=== PATIENT | male | born 1950 | race Caucasian/White ===

== ENCOUNTER → 2016-07-27 | Outpatient (CLI) | payer SELFPAY ==
--- NOTE | 2016-07-28 13:38 | KCIC ---
PROCEDURE: 2 CT coronary calcium score HISTORY Calcium screening. Reason For Study Reason: SCREENING FOR HEART DISEASE, BROTHER-[place] / Spl. Instructions: / History: TECHNIQUE High resolution, computed tomography of the heart was performed with ECG gating and suspended respiration using the Siemens HeartView CT. No contrast material was administered. Post processing was performed on the 3-D computer workstation using diastolic phase images to measure the amount of coronary vascular calcium. Scoring was performed utilizing the Agaston Method. FINDINGS Thorax: No significant abnormality is identified in the lungs or mediastinum. Note that this CT exam is limited to the heart and adjacent structures. Mild ectasia of the ascending aorta. Coronary arteries: CALCIUM IS PRESENT. TOTAL AGASTON CALCIUM SCORE =1196.2. Calcium is detected in the coronary circulation and confirms the presence of atherosclerotic plaque. The score is derived from 54 in the left main coronary artery, 4 in 28.4 in the left anterior descending, 42.2 in the left circumflex can't 671.7 in the right coronary artery The presence of coronary calcium confirms the presence of atherosclerotic plaque. The greater the amount of coronary calcium, the greater the likelihood of stenotic or occlusive coronary artery disease. However, there is not a one-to-one relationship, and findings may not be site specific. The total amount of calcium correlates best with the total amount of atherosclerotic plaque, although the true plaque burden may be underestimated by calcium score. A high calcium score may be consistent with a MODERATE TO HIGH RISK risk of cardiovascular events within the 2-5 years. IMPRESSION 1. Coronary atherosclerosis is present, extensive. 2. High risk of cardiovascular event within the next 2 to 5 years. 3. High probability of stenotic (potentially flow-limiting) or occlusive coronary artery disease RECOMMENDATIONS 1. Strongly consider further cardiac evaluation for pre-clinical coronary heart disease. 2. Deposit aggressive cardiovascular risk factor modification as indicated based on risk profile. Additional supporting information concerning the findings and recommendation contained within this report can be found in the consensus statements on coronary vascular calcium published by the [place] [employer] and [place] [employer] and [employer] 5 Conference (Circulation 1996; 94: 4933-5123; J Am Christopher Cardiol 2000; 36: 326-340 and Circulation 2000; 101: 111-116). PQRS STATEMENT One or more of the following individualized dose reduction techniques were utilized for this study: 1.Automated exposure control 2.Adjustment of the mA and/or kV according to patient size 3.Use of iterative reconstruction technique Electronically signed by: Kayla Bradford MD (Jul 28, 2016 13:36:54)
== END | disposition home or self-care (01) ==
LOC: KCIC CT 10:15
PROVIDERS: ATTEND Nurse Practitioner Family
DX: Z13.6 Encounter for screening for cardiovascular disorders (principal); Z79.01 Long term (current) use of anticoagulants; Z86.69 Personal history of other diseases of the nervous system and sense organs; Z82.49 Family history of ischemic heart disease and other diseases of the circulatory system
CPT/HCPCS: 75571

== ENCOUNTER → 2016-08-24 | Outpatient (CLI) | payer MEDICARE ==
--- NOTE | 2016-08-25 12:31 | RAD ---
APPROVED REPORT Test Type: Exercise Stress Nurse/Tech: Gina Lora R.N. Test Indications: elevated calcium score, pt states that he has been getting dizziness that will oc cur all day long when either he goes from a laying position to sitting and from sitting to standing. the worse dizziness is from the first set of positioning. these dizzy spells occur every couple of mo nths. Cardiac History: none noted Medications: See Electronic Medical Record Medical History: See Electronic Medical Record Resting ECG: SB Resting Heart Rate: 49 bpm Resting Blood Pressure: 129/68mmHg Pretest Chest Pain: No chest pain Nurse/Tech Notes S1S2, Lungs CTA Consent: The procedure was explained to the patient in lay terms. Informed consent was witnessed. Junior hadley was entered into [employer]. History and Stress Test performed by KRISTEL Parra Stress Symptoms dizziness which did resolve during recovery period while sitting, SOA, leg fatigue POST EXERCISE Reason for Termination: Reached target heart rate Target HR: Yes Max HR: 133 bpm 102% of Maximum Predicted HR: 130 bpm Exercise duration: 9.02 min:sec, 3 Stage Exercise capacity: 10METs Max Blood Pressure: 160/73mmHg Blood Pressure response to exercise: Normal blood pressure response during stress. Heart Rate response to exercise: wnl Chest Pain: No. Arrhythmia: No. ST Change: No. Imaging Protocol IMAGE PROTOCOL: Rest Tc-99m/stress Tc-99m 1 day Rest: Stress: Viability: Radiopharm.Tc99m [id number] Sestamibi Dose10.2mCi 36mCi Duration 15min. 10min. Img Date 08/24/2016 08/24/2016 Inj-Img [id number]. 60min. Rest Admin Site:IV - Right AntecubitalAdministrator:RT Darion (R)(N) Stress Admin Site: IV - Right AntecubitalAdministrator: KRISTEL Parra STRESS DATA End Diast. Vol.76.0mlAv. Heart Rate67.0bpm End Syst. Vol.23.0mlCO Index BSA0.0L/min Myocardial Jobl144.0gEject. Rnuebjll93.0% Stress Rates Pk. Fill Rate3.05EDV/secLVtime Pk. Fill 226.49msec Pk. Empty Rate3.77ESV/secLVtime Pk. Yayal932.50msec 05/05 Pk. Fill1.12EDV/sec Stress Scores Regional WT0.00Summed WT3.00 Regional WM0.00Summed WM0.00 LV Perf. Quant 17 Seg. SSS0.00 17 Seg. SRS0.00 17 Seg. SDS0.00 Stress Defect Extent (% LAD)0.00Rest Defect Extent (% LAD)0.00Rev. Defect Extent (% LAD)0.00 Stress Defect Extent (% LCX) 0.00Rest Defect Extent (% LCX)0.00Rev. Defect Extent (% LCX)0.00 Stress Defect Extent (% RCA)0.00Rest Defect Extent (% RCA)0.00Rev. Defect Extent (% RCA)0.00 Stress Defect Extent (% DAKOTA)0.00Rest Defect Extent (% DAKOTA)0.00Rev. Defect Extent (% DAKOTA)0.00 Conclusion 1. The patient was exercised on the Neri protocol for a total of 9 minutes achieving 10 Mets.. 2. He attained a heart rate of 130 bpm which is almost 90% of the maximum predicted heart rate for hi s age. 3. Exercise was terminated at that point. There was no chest pain. 4. There were no electrocardiographic changes suggestive of myocardial ischemia 5. . The blood pressure response was normal. There were no arrhythmias. 6. There were no perfusion defects to suggest myocardial ischemia or scar. 7. There is normal wall motion and wall thickening with an ejection fraction of 70%. 8. Scan indicates low risk for future cardiac events.
== END | disposition home or self-care (01) ==
LOC: NM 09:24
PROVIDERS: ATTEND Internal Medicine Cardiovascular Disease
DX: R93.1 Abnormal findings on diagnostic imaging of heart and coronary circulation (principal)
CPT/HCPCS: 78452; 93017; 96374; 96376; A9500

== ENCOUNTER → 2018-03-07 | Outpatient (CLI) | payer MEDICARE ==
[~2018-03-07] MED LIST: ASPI325T8 PO; ATOR10TA60 PO; CIPR250T PO; GABA-585 PO; GADOBUTROL 7.5 MMOL/7.5 ML VIAL IV ONE; PHEN100C PO
--- NOTE | 2018-03-07 10:44 | KCIC ---
MRI of the Brain without and with Contrast 03/07/2018 Clinical History: History of expressive aphasia and vertigo. History of previous CVA. Technique: Unenhanced T1-weighted sagittal and axial and FLAIR, T2-weighted, gradient echo and diffusion-weighted axial images of the brain were obtained. Additionally thin section T2-weighted and FLAIR coronal images of the temporal lobes were obtained. After the intravenous administration of 7 cc of Gadavist, enhanced T1-weighted axial, sagittal and coronal images of the brain were obtained. Findings: No previous studies are available for comparison. There is generalized parenchymal atrophy. Patchy, confluent and multiple focal areas of abnormally increased signal intensity are seen within the periventricular and subcortical white matter of both cerebral hemispheres on the FLAIR and T2-weighted images consistent with areas of small vessel ischemic disease. An area of encephalomalacia is seen within the left temporal lobe. Old areas of lacunar infarction are seen within the periventricular/deep white matter of the left frontotemporal lobe which measure 5 mm to 1 cm in size. No acute parenchymal abnormality is seen. No abnormal area of contrast enhancement is noted. No extra-axial fluid collection is seen. There is no MRI evidence of acute ischemia/infarction. Mild mucosal thickening in seen scattered throughout the paranasal sinuses. There is a small left mastoid effusion. A minimal right mastoid effusion is seen. Normal flow voids are seen within the major vascular structures surrounding the brain parenchyma. Impression: No acute parenchymal abnormality is seen. Electronically signed by: Brandon Zelaya MD (03/07/2018 10:41 AM) [facility]-[id number]
== END | disposition home or self-care (01) ==
LOC: KCIC MRI 09:14
PROVIDERS: ATTEND Family Medicine
DX: I63.81 Other cerebral infarction due to occlusion or stenosis of small artery (principal); H74.8X3 Other specified disorders of middle ear and mastoid, bilateral; G93.89 Other specified disorders of brain; R47.01 Aphasia; Z86.73 Personal history of transient ischemic attack (TIA), and cerebral infarction without residual deficits; Z79.01 Long term (current) use of anticoagulants
CPT/HCPCS: 70553; A9585

== ENCOUNTER → 2018-03-17 | Outpatient (CLI) | payer MEDICARE ==
[~2018-03-17] MED LIST changes: -GADOBUTROL 7.5 MMOL/7.5 ML VIAL IV ONE
--- NOTE | 2018-03-17 14:19 | KCIC ---
Exam : Carotid Duplex with Grayscale Ultrasound and Spectral and Color Doppler Analysis 03/17/2018 2:13 PM Clinical Indications: Expressive aphasia Comparison study: None available. PQRS Compliance Statement - Stenosis calculations for CT, MR and conventional angiography are based upon measurement of the distal ICA diameter in accordance with the NASCET methodology. Stenosis calculations for carotid ultrasound studies are derived from validated velocity criteria which are known to correlate with the NASCET methodology. Findings: The common, internal and external carotid arteries were examined by grayscale, color and spectral Doppler ultrasound. Diffuse aphthous chronic vascular disease is noted. Dense plaque is seen at the level of the carotid bulb on the right. Mild visual narrowing is seen on color Doppler imaging. Right vertebral flow is antegrade. Similar to contralateral side, atherosclerotic plaquing is seen in the carotid bulb, more mild on the left. Distal left ICA is partially obscured. Left vertebral artery is antegrade. No focal elevations velocity suggestive of a hemodynamically significant stenosis are identified. See velocities below. The following are the velocities and ratios in the carotid arteries on both sides: RIGHT ICA PV: 73cm/sec RIGHT CCA PV: 90cm/sec RIGHT ICA ED: 26cm/sec RIGHT IC/CCPV: Less than 2 RIGHT VERTEBRAL: antegrade flow LEFT ICA PV: 69cm/sec LEFT CCA PV: 80cm/sec LEFT ICA ED: 25cm/sec LEFT IC/CCPV: Less than 2 LEFT VERTEBRAL: antegrade flow <50% ICA Stenosis: PSV < 125cm/s (EDV < 40cm/s; SVR < 2.0) 50-69% ICA Stenosis: PSV < 125-229cm/s (EDV 40-99cm/s; SVR 2.0-3.9) >70% ICA Stenosis: PSV > 230cm/s (EDV >100cm/s; SVR >4.0) Impression: Diffuse atherosclerotic vascular disease with atherosclerotic plaquing seen in the bilateral carotid bulbs right greater than left. Mild visual narrowing is demonstrated in the proximal most right ICA. By ultrasound criterion there is less than 50 percent stenosis of the bilateral internal carotid arteries. Electronically signed by: Ang Perez MD (03/17/2018 2:16 PM) [id number]
== END | disposition home or self-care (01) ==
LOC: KCIC US 12:30
PROVIDERS: ATTEND Family Medicine
DX: I65.23 Occlusion and stenosis of bilateral carotid arteries (principal); Z86.73 Personal history of transient ischemic attack (TIA), and cerebral infarction without residual deficits
CPT/HCPCS: 93880

== ENCOUNTER → 2020-03-22 | Outpatient (CLI) | payer MEDICARE ==
--- NOTE | 2020-03-22 16:25 | KCIC ---
EXAM: AP, lateral and lumbosacral spot views with bilateral oblique views of the lumbar spine DATE: 03/22/2020 12:00 AM INDICATION: LUMBAR BACK PAIN/RULE OUT COMPRESSION FX / Spl. Instructions: Fall 3 weeks ago. LBP, Bilat hip pain. Left leg and butock pain. COMPARISON: None FINDINGS: Examination is limited by marked osteopenia. Moderate height loss of T12 and L1. Mild L4-loss. Mild to moderate disc height loss at multiple levels. No spondylolisthesis. Atherosclerotic vascular calcifications are seen. Moderate to large volume colonic stool content is seen. IMPRESSION: 1. Height loss of the T12 and L1 vertebral bodies, age indeterminate. MRI may provide additional details if further imaging is required. 2. Otherwise no definite fracture seen although marked osteopenia limits evaluation. 3. Large volume colonic stool content. Electronically signed by: Sam Mari MD (03/22/2020 4:22 PM) [id number]
--- NOTE | 2020-03-22 16:26 | KCIC ---
EXAM: 2 views of the pelvis DATE: 03/22/2020 12:00 AM INDICATION: Reason: LUMBAR BACK PAIN/RULE OUT COMPRESSION FX. / Spl. Instructions: Fall 3 weeks ago. LBP, Bilat hip pain. Left leg and butock pain. / History: COMPARISON: No Prior FINDINGS: Marked osteopenia, within the constraints of osteopenia no evidence for acute fracture or dislocation, however MRI is more sensitive given degree of osteopenia. Large volume colonic stool content. Hip joint degenerative changes are seen. Vascular calcifications are seen. IMPRESSION: Within the constraints of osteopenia, no evidence for acute fracture or dislocation. Further evaluation with MRI would provide additional details if there is persistent clinical concern. Electronically signed by: Sam Mari MD (03/22/2020 4:23 PM) [id number]
== END ==
LOC: KCIC 14:05
PROVIDERS: ATTEND Family Medicine
DX: M54.5 Low back pain (principal); M85.88 Other specified disorders of bone density and structure, other site; M16.0 Bilateral primary osteoarthritis of hip
CPT/HCPCS: 72110; 72170

== ENCOUNTER → 2020-03-27 | Outpatient (CLI) | payer MEDICARE ==
--- NOTE | 2020-03-27 14:45 | KCIC ---
EXAMINATION: Magnetic resonance imaging (MRI) of the lumbar spine without contrast 03/27/2020 1:15 PM HISTORY: Lumbar back pain with recent fall. TECHNIQUE: Multiplanar multi-weighted MRI of the lumbar spine was performed without intravenous contrast using the standard lumbar spine protocol. Contrast information: None administered. COMPARISON: Lumbar spine radiograph 03/22/2020 FINDINGS: There is minimal retrolisthesis of L2 on L3 and L3 on L4. There is minimal retrolisthesis of L5 on S1. Chronic height loss is identified at T12 with 25 percent height loss and anterior wedging. Chronic height loss is identified at L1 with 50 percent height loss. Inferior plate Schmorl's node is present. No associated edema. Superior plate Schmorl's node at L2 without significant height loss. There is an inferior endplate compression fracture at L3 with 50 percent height loss. No significant retropulsion of the inferior endplate. Superior and inferior endplate Schmorl's nodes are identified at L4 with minimal chronic height loss. Conus medullaris terminates at L1-L2. Distal spinal cord signal intensity is normal in all sequences. Marrow edema is noted at L3 localized to the inferior 50 percent of the vertebral body. Edema extends into the right L3 pedicle. Minimal interspinous edema at L2-L3 without disruption of the ligamentum flavum. No compressive epidural hematoma or prevertebral edema noted. Simple appearing right renal cyst measures 4.2 cm. Umbilical is normal in caliber. Visualized portions of the sacrum appear intact. T12-L1: There is mild disc bulge. Mild facet arthropathy. No neuroforaminal stenosis. Mild spinal canal stenosis. L1-L2: There is mild disc bulge. Mild facet arthropathy. No neuroforaminal or spinal canal stenosis. L2-L3: Mild circumferential disc bulge. Mild facet arthropathy. Severe bilateral neuroforaminal stenosis. Mild spinal canal stenosis. L3-L4: There is a disc bulge. Moderate facet arthropathy with fluid within the facet joints. Severe bilateral neuroforaminal stenosis. Mild spinal canal stenosis. L4-L5: There is moderate disc bulge. Mild facet arthropathy. Moderate bilateral neuroforaminal stenosis, left greater than right. No spinal canal stenosis. L5-S1: Disc bulge with central disc protrusion. Moderate facet arthropathy. Moderate bilateral neuroforaminal stenosis. No spinal canal stenosis. IMPRESSION: 1. Inferior plate compression fracture at L3 with 50 percent height loss. No significant retropulsion or disruption of the posterior ligamentous complex. Minimal interspinous edema identified at L2-L3. No epidural hematoma is identified. 2. Moderate lumbar spondylosis as described in detail above. 3. Chronic superior plate compression deformity at T12 and chronic inferior endplate compression deformity at L1 with 50 percent height loss. Electronically signed by: Divya Vazquez MD (03/27/2020 2:42 PM) [id number]
== END ==
LOC: KCIC MRI 13:07
PROVIDERS: ATTEND Family Medicine
DX: M47.815 Spondylosis without myelopathy or radiculopathy, thoracolumbar region (principal); M43.17 Spondylolisthesis, lumbosacral region; M51.46 Schmorl's nodes, lumbar region; M48.07 Spinal stenosis, lumbosacral region; M43.8X6 Other specified deforming dorsopathies, lumbar region; M43.8X4 Other specified deforming dorsopathies, thoracic region
CPT/HCPCS: 72148

== ENCOUNTER → 2020-08-05 | Outpatient (CLI) | payer MEDICARE ==
[~2020-08-05] MED LIST changes: +CALC500T30 PO; +CHOLECALCIFEROL PO; +MULT-445 PO; +OMEG100020 PO
--- NOTE | 2020-08-05 14:53 | KCIC ---
EXAM: 3 Views Left Shoulder DATE: 08/05/2020 10:53 AM INDICATION: Reason: LEFT SHOULDER/SCAPULA PAIN INTO ARM, FALL 1 WEEK AGO / Spl. Instructions: / Hist ory: COMPARISON: No Prior FINDINGS: There is no evidence for acute fracture or dislocation. AC joint is congruent. Mildly decreased bone mineral density. Humeral head is not high riding. IMPRESSION: 1. No acute fracture or dislocation. 2. Decreased bone mineral density. Electronically signed by: Sam Mari MD (08/05/2020 2:51 PM) [id number]
== END ==
LOC: KCIC 10:49
PROVIDERS: ATTEND Family Medicine
DX: M25.512 Pain in left shoulder (principal)
CPT/HCPCS: 73030

== ENCOUNTER → 2020-11-29 | Outpatient (CLI) | payer MEDICARE ==
[2020-09-03 10:46] VITALS: BP 108/60
[~2020-11-29] MED LIST changes: +ATOR80TA72 PO; +BISA5TAB4 PO; +DONE5TAB7 PO; +FOLI0.8T21 PO; +HYDR-2765 PO; +IOHEXOL 240 MG/ML 50ML VIAL. PO ONE; +IOHEXOL 300 MG/ML 100ML VIAL. IV ONE; +PANT40TA77 PO; +POLY17PO52 PO; +Warfarin Per Pharmacy MC
--- NOTE | 2020-11-29 14:54 | KCIC ---
EXAM: CT ABDOMEN/PELVIS WITH CONTRAST. HISTORY: Weight loss. TECHNIQUE: Computed tomography of the abdomen and pelvis was performed after the intravenous administ ration of iodinated contrast. One or more of the following individualized dose reduction techniques w ere utilized for this examination: 1. Automated exposure control. 2. Adjustment of the mA and/or kV according to patient size. 3. Use of iterative reconstruction technique. COMPARISON: None. FINDINGS: Lung windows through the visualized portions of the bases reveal mild atelectasis. There ar e atherosclerotic calcifications of the coronary arteries. Bone windows reveal no suspicious lesions. Osteopenia is moderate to severe. There are multiple moderate chronic appearing compression deformit ies throughout the visualized thoracic and lumbar spine. There are changes of internal fixation of a right femoral intertrochanteric fracture. This appears incompletely unified. Benign renal cysts measure up to 4.2 cm on the right. The spleen, liver, gallbladder, pancreas and ad renal glands are unremarkable. There are no pathologically enlarged lymph nodes. Stool throughout the colon is consistent with constipation. There is no small bowel obstruction. Ther e is no evidence of appendicitis. IMPRESSION: 1. Findings consistent with constipation. No acute intra-abdominal findings. 2. A right femoral intertrochanteric fracture appears incompletely unified. Electronically signed by: Christi Tolentino MD (11/29/2020 2:51 PM) [facility]
== END ==
LOC: KCIC CT 09:31
PROVIDERS: ATTEND Internal Medicine Gastroenterology
DX: S72.141A Displaced intertrochanteric fracture of right femur, initial encounter for closed fracture (principal); N28.1 Cyst of kidney, acquired; M85.88 Other specified disorders of bone density and structure, other site; I25.10 Atherosclerotic heart disease of native coronary artery without angina pectoris; J98.11 Atelectasis; X58.XXXA Exposure to other specified factors, initial encounter; Y93.89 Activity, other specified; Y92.89 Other specified places as the place of occurrence of the external cause; Y99.8 Other external cause status
CPT/HCPCS: 74177; Q9966; Q9967

== ENCOUNTER → 2020-12-06 | Outpatient (CLI) | payer MEDICARE ==
[2020-09-03 10:46] VITALS: BP 108/60
[~2020-12-06] MED LIST changes: +DONE5TAB56 PO; +IOHEXOL 180 MG/ML 10 ML VIAL. ONE; -IOHEXOL 240 MG/ML 50ML VIAL. PO ONE; -IOHEXOL 300 MG/ML 100ML VIAL. IV ONE; +OMEP40CA7 PO; +methylPREDNISolone ACETATE 40 MG/ML VIAL. ONE; +methylPREDNISolone ACETATE 80 MG/ML VIAL. ONE
--- NOTE | 2020-12-06 10:18 | PDOC ---
Progress Note - Pain Clinic Date of Service: DOS: DATE: 12/06/20 TIME: 10:16 Diagnosis: Dx: Lumbar radiculopathy with lumbar degenerative disc disease lumbar spinal stenosis and lumbar compression fracture L3 History or Present Illness: HPI: 70-year-old male returns for follow-up status post lumbar epidural steroid injection last seen April 17, 2020. Patient reports he did 100% improvement for about 5 months. Patient reports the pain returned over the past month or 2 in the low back and the right lower extremity posterior gluteus lateral thigh anterior thigh medial thigh posterior thigh as well worse with walking and standing patient reports is also some in the mid to low back on the right side rated a 7 on a scale of 10 is worse over the past week for an average to its least is a 2 today patient reports radiating on and off in intensity aching and dull worse with walking standing patient is noticing starting to hunched over again when he is walking is becoming more difficult to change positions still better with sitting or laying down does not awaken him from sleep at night. Patient reports no bowel or bladder incontinence or other motor loss. Patient reports pain returned only about 2 to 3 weeks ago without any specific injury or accident. Physical Exam: VS: Blood pressure is 121/69 pulse 63 respirations 16 temperature is 90.1 F weight is 176 pounds PE: PHYSICAL EXAMINATION: GENERAL: The patient is awake, alert, oriented, appropriate, very pleasant in demeanor, patient [place] by his HEENT: Shows normocephalic, atraumatic. Extraocular movements are intact and symmetrical. Oral cavity: Mucous membranes moist and pink. NECK: Shows anterior throat supple without palpable lymphadenopathy noted. Swallow reflex symmetrical. CHEST: Shows normal on inspection. Breath sounds are clear bilaterally, no rales rhonchi wheezes auscultated. HEART: Shows S1, S2 clear. No murmurs auscultated. ABDOMEN: Soft, nontender, nondistended. No palpable organomegaly is noted. BACK: Shows spine grossly in the midline. Normal-appearing cervical lordotic curvature. There is slightly increased thoracic kyphosis, some minor flattening of the lumbar lordotic curvature. Lumbar paraspinous muscles show symmetrical on inspection, on palpation shows some moderate tenderness diffusely throughout the upper, middle and lower distribution of the paraspinous muscles, but without specific trigger points, without radiation of pain. The patient has good rotational motion of the lumbar spine, both laterally as well as extension and flexion without significant difficulty. No tenderness over the spinous processes, sacrum or sacroiliac regions. EXTREMITIES: Lower extremities show deep tendon reflexes 2+ in the patellar and tendo calcaneus tendons. Motor exam is 4 on a scale of 5 with right dorsiflexion, extension, quadriceps and hamstring flexion and 4/5 on the left. Peripheral pulses are 1+ posterior tibial. No peripheral edema is noted bilaterally. Lower extremities are warm and dry to touch, equal in color and appearance. SKIN: Shows warm and dry, good turgor. No edema. No sores, rashes or bruising throughout. Procedure: Procedure: Options were discussed with the patient. Patient's old chart was reviewed his current medication regimen updated current review of systems updated today as well. We will proceed with a lumbar epidural steroid injection today with fluoroscopic guidance. Risks were discussed including but not limited to: Bleeding, infection, possibility of epidural hematoma and subsequent neurological compromise, dural puncture, headaches, spinal cord and/or nerve damage, side effects of steroid medication, and poor results regarding pain control. Patient understands and wished to proceed. Patient will return to the clinic in approximate 2 weeks for follow-up, was counseled as return appointment active level and side effects to be aware of. Medication Injected: Med Injected: Procedure is lumbar epidural steroid injection under local anesthetic using sterile prep and drape at the L4-5 level using C-arm fluoroscopic guidance in both AP and lateral views medications injected is 120 mg Depo-Medrol +10mL preservative-free normal saline and 2 mL contrast- condition at discharge is stable patient tolerated procedure well had no complications. Condition at Discharge: Condition at Discharge: Condition at discharge stable, patient already procedure well and had no complications. JOSE PACHECO MD Dec 06, 2020 10:18
--- NOTE | 2020-12-06 10:19 | PDOC4 ---
Procedure Note: ICD 10 Code: ICD 10 Code: M54.16 M 48.07 Procedure Note: Patient was consented for lumbar epidural steroid injection with fluoroscopic guidance. Risks were discussed including but not limited to: Bleeding, infection, possibility of epidural hematoma and subsequent neurological compromise, dural puncture, headaches, spinal cord and/or nerve damage, side effects of steroid medication, and poor results regarding pain control. Patient understands and wished to proceed. Procedure is lumbar epidural steroid injection under local anesthetic using sterile prep and drape at the L4-5 level using C-arm fluoroscopic guidance in both AP and lateral views medications injected is 120 mg Depo-Medrol +10mL preservative-free normal saline and 2 mL contrast- condition at discharge is stable patient tolerated procedure well had no complications. JOSE PACHECO MD Dec 06, 2020 10:19
== END | disposition home or self-care (01) ==
LOC: PNCL 09:22
PROVIDERS: ATTEND Anesthesiology
DX: M51.16 Intervertebral disc disorders with radiculopathy, lumbar region (principal); M48.061 Spinal stenosis, lumbar region without neurogenic claudication; M48.56XA Collapsed vertebra, not elsewhere classified, lumbar region, initial encounter for fracture; Z79.899 Other long term (current) drug therapy; Z79.82 Long term (current) use of aspirin
CPT/HCPCS: 62323; J1030; J1040; Q9965